=== PATIENT | female | born 2005 | race Caucasian/White ===

== ENCOUNTER 2023-08-18 09:50 | Outpatient (CLI) | payer OTHER, SELFPAY | END 2023-08-18 09:51 | disposition home or self-care (01) | LOC: AMB 08-19 07:07 | PROVIDERS: Visit Provider Family Medicine | DX: R07.89 Other chest pain (principal) | CPT/HCPCS: A0998 ==

== ENCOUNTER 2023-08-18 10:27 | Emergency (ER) | payer OTHER, SELFPAY ==
[2023-08-18 10:41] VITALS: BP 109/71; PULSE 77; RESP 16; TEMP 36.6; O2SAT 97; BMI 19.8
--- NOTE | 2023-08-18 11:08 | ED_ITS ---
HPI - General Adult General Chief complaint: Chest Pain Stated complaint: Likely anxiety attack--chest pressure, nausea Time Seen by Provider: 08/18/23 11:08 History of Present Illness HPI narrative: Chest pressure since last night. Feels like reflux but higher. Hx anxiety, finals right now but doesn't feel overly stressed . 18-year-old young woman presenting to the emergency department concern of a chest pressure and some abdominal discomfort. Acknowledges underlying history of anxiety. Is in finals right now but does not feel particularly stressed. Some concerns also are related to this visit here today as is an international student with insurance based in [place]. Is a trista in college locally. She has been taking Zoloft currently dosed at 50 mg daily over the last 2 years. She does have a history of some heartburn. Was treated when last in [place] with the proton pump inhibitor for 2 weeks. She is not taking this regularly. Last night began to feel onset of some chest pressure/tremor some abdominal attention. What is alarming is that this chest pressure which may represent her anxiety historically has continued longer than usual to this morning. With question reveals that her discomfort feels a little worse when she lies down. Feels mildly short of breath. Has not had any leg pain or swelling. No fevers no rashes. No particular exposures to illness. She did have loose stool this morning. Does have a ParaGard IUD and a history of rather heavy menses. Has noted to be low iron but not necessarily anemic in the past. Does not take regular iron supplementation. Related Data Home Medications Medication Instructions Recorded Confirmed bromazepam PRN 08/18/23 sertraline 50 mg tablet (Zoloft) 50 mg PO DAILY 08/18/23 08/18/23 Allergies Allergy/AdvReac Type Severity Reaction Status Date / Time amoxicillin Allergy Severe Rash Verified 08/18/23 10:40 Review of Systems Status of ROS: Reports: 6 or more systems reviewed and unremarkable except as noted in History and below PFSH PFSH Social History Smoking Status: Never smoker Non-prescribed substance use: denies use Exam Narrative: Exam Narrative: Is very pleasant. Breathing easily. Skin is warm and dry well without apparent rash. Mucous membranes are not notably pale. She is well-perfused peripherally without lower extremity edema and without pain. Lungs are clear with breath sounds throughout. There is no supraclavicular crepitus. Pain is not reproducible to palpation over the chest. Heart with regular rate and rhythm without murmur rub or gallop. Does not change positionally. Abdomen is soft flat days. Mildly uncomfortable to palpation in the epigastrium. No masses appreciated. Const: Vital Signs, click to edit/add: Vital Signs - 24 hr 08/18/23 10:41 Temperature 97.8 F Pulse Rate [Pulse Oximeter] 77 Respiratory Rate 16 Blood Pressure [Ri ght Upper Arm] 109/71 Pulse Oximetry 97 Oxygen Delivery Me thod Room Air Documenting provider has reviewed patient's vital signs: yes Course Vital Signs Vital signs: Initial Vital Signs Temperature 97.8 F 08/18/23 10:41 Temperature Source Temporal Artery Scan 08/18/23 10:41 Pulse Rate 77 08/18/23 10:41 Respiratory Rate 16 08/18/23 10:41 Blood Pressure 109/71 08/18/23 10:41 Blood Pressure Mean 83 08/18/23 10:41 Blood Pressure Position High-Fowlers 08/18/23 10:41 Pulse Oximetry 97 08/18/23 10:41 Oxygen Delivery Method Room Air 08/18/23 10:41 Vital Signs Temperature 97.8 F 08/18/23 10:41 Pulse Rate 77 08/18/23 10:41 Respiratory Rate 16 08/18/23 10:41 Blood Pressure 109/71 08/18/23 10:41 Pulse Oximetry 97 08/18/23 10:41 Oxygen Delivery Method Room Air 08/18/23 10:41 Temperature 97.8 F 08/18/23 10:41 Pulse Rate 77 08/18/23 10:41 Respiratory Rate 16 08/18/23 10:41 Blood Pressure 109/71 08/18/23 10:41 Pulse Oximetry 97 08/18/23 10:41 Oxygen Delivery Method Room Air 08/18/23 10:41 Medical Decision Making MDM Narrative Medical decision making narrative: Does seem generally well. Has history of similar explained by diagnoses as mentioned HPI. This loose stool certainly could be exacerbation anxiety or developing enteritis. May have some degree of gastritis. Could be underlying gallbladder disease though has not disclosed any particular food intolerances. Definitely does not have positive Licea's. Tension in the chest may well just represent anxiety or with a vague pleuritic component pleuritis or maybe even a pericarditis, pneumothorax, pulmonary embolus. Doubtful ischemic cardiovascular event. Does not appear to have any arrhythmia though EKG is pending. EKG reassuring as below. Checking labs for indication of pulmonary embolus or ischemic cardiac event. Chest x-ray was not done. Over time in the emergency department reported a little less sensation of tension/pressure in the chest though still present. Assessed otherwise to be vitally well and safe for discharge. See patient discharge plan Lab Data Lab results reviewed: Yes I reviewed the patient's lab results Labs: Lab Results 08/18/23 Range/Units 12:26 Hgb 11.9 L (12.0-16.0) gm/dL D-Dimer Quant (PE/DVT) < 0.27 (0.00-0.50) ug/ml POC Troponin I 0.00 L (0.01-0.04) ng/ml ECG Data Attestation: I personally reviewed and interpreted this ECG as follows: (Normal sinus rhythm rate of 70. No ischemic changes.) Discharge Plan Discharge Clinical Impression: Anxiety, Chest pressure Patient Disposition: Home, Self-Care Condition: Stable Additional Instructions: Truthfully we can't tell you what is the cause of your symptoms today. Certainly is suspicious for a smoldering, residual anxiety. You might consider re-dosing with your benzodiazepine when you get back and perhaps this would help with that symptom. You might also consider taking famotidine if heartburn might be contributing. I would take this once or twice a day for perhaps a week. Otherwise return for marked increase in chest pain or pressure, shortness of breath, associated fever or lightheadedness. I am happy you have regular follow-up with your therapist. Prescriptions: No Action sertraline [Zoloft] 50 mg tablet 50 mg PO DAILY bromazepam PRN Follow Up/Referrals: Provider,Not a Local [Primary Care Provider] - Stand Alone Forms: [facility] Info Instructions
[2023-08-18 12:33] LABS: Hemoglobin* 11.9 gm/dL (12.0-16.0)
[2023-08-18 13:18] LABS: D Dimer Quantitative* < 0.27 ug/ml (0.00-0.50)
== END 2023-08-18 13:34 | disposition home or self-care (01) ==
PROVIDERS: Emergency Provider Family Medicine
DX: R07.89 Other chest pain (principal); F41.9 Anxiety disorder, unspecified
CPT/HCPCS: 36415; 84484; 85018; 85379; 93005; 99284